=== PATIENT | male | born 1970 | race Caucasian/White ===

== ENCOUNTER 2021-09-18 05:39 | Observation (INO) ==
[2021-09-18] MEDS ORDERED: CLINDAMYCIN INJ 600 MG/50 ML PREMIX IV ONE (06:00)
[2021-09-18] MEDS ORDERED: FAMOTIDINE 20 MG TABLET PO ONE (06:29)
[2021-09-18] MEDS ORDERED: GABAPENTIN 400 MG CAPSULE PO ONE (06:29)
[2021-09-18] MEDS ORDERED: ACETAMINOPHEN 500 MG TABLET PO ONE (06:29)
[2021-09-18] MEDS ORDERED: DIAZEPAM 5 MG TABLET PO ONE (06:29)
[2021-09-18] MEDS ORDERED: LACTATED RINGERS 1,000 ML IV SCH (06:30)
[2021-09-18] MEDS ORDERED: LIDOCAINE 2% 5 ML VIAL ONE (06:31)
[2021-09-18] MEDS ORDERED: propofoL 200 MG/20 ML VIAL IV ONE (06:31)
[2021-09-18] MEDS ORDERED: MIDAZOLAM 2 MG/2 ML VIAL ONE (06:31)
[2021-09-18] MEDS ORDERED: fentaNYL 100 MCG/2 ML VIAL ONE ×2 (06:31→08:33)
[2021-09-18] MEDS ORDERED: SUCCINYLCHOLINE 200 MG/10 ML VIAL ONE (06:34)
[2021-09-18] MEDS ORDERED: ROCURONIUM 50 MG/5 ML VIAL IV ONE (06:34)
[2021-09-18] MEDS ORDERED: LIDOCAINE 1%/EPI INJ 20 ML VIAL ONE (06:50)
[2021-09-18] MEDS ORDERED: BUPIVACAINE MPF 0.25% 30 ML VIAL ONE (06:50)
[2021-09-18] MEDS ORDERED: TISSUE ADHESIVE 1 EACH APPLICATOR TOP ONE ×2 (06:50→08:51)
[2021-09-18] MEDS ORDERED: PHENYLEPHRINE 10 MG/1 ML VIAL IV ONE (07:14)
[2021-09-18] MEDS ORDERED: ePHEDrine 50 MG/ML VIAL ONE (07:23)
[2021-09-18] MEDS ORDERED: SEVOFLURANE 1 UNIT/15 MINUTE INH ONE (07:59)
[2021-09-18] MEDS ORDERED: LACTATED RINGERS 1,000 ML IV ONE (07:59)
[2021-09-18] MEDS ORDERED: SODIUM CHLORIDE 0.9% 100 ML IV ONE (07:59)
[2021-09-18] MEDS ORDERED: DEXAMETHASONE 4 MG/1 ML VIAL ONE (08:00)
[2021-09-18] MEDS ORDERED: ONDANSETRON 4 MG/2 ML VIAL ONE (08:00)
[2021-09-18] MEDS ORDERED: SUGAMMADEX 200 MG/2 ML VIAL IV ONE (08:16)
[2021-09-18] MEDS ORDERED: ONDANSETRON 4 MG/2 ML VIAL IV PRN (09:11)
[2021-09-18] MEDS ORDERED: MORPHINE 2 MG/1 ML SYRINGE IV PRN (09:11)
[2021-09-18 10:59] LABS: Hematocrit 43.9 VOL% (42.0-52.0); Hemoglobin 14.8 GM/DL (14.0-18.0)
[2021-09-18 17:58] LABS: Hematocrit 45.6 VOL% (42.0-52.0); Hemoglobin 15.3 GM/DL (14.0-18.0)
[2021-09-18] MEDS: busPIRone 5 MG TABLET PO SCH (21:27)
[2021-09-18] MEDS ORDERED: MORPHINE 4 MG/1 ML VIAL IV PRN (23:00)
[2021-09-19 01:07] LABS: Hematocrit 41.9 VOL% (42.0-52.0)
[2021-09-19] MEDS ORDERED: LEVOTHYROXINE 150 MCG TABLET PO SCH (06:30)
[2021-09-19 07:45] VITALS: BP 132/89
[2021-09-19] MEDS: busPIRone 5 MG TABLET PO SCH (08:44)
[2021-09-19] MEDS ORDERED: amLODIPine 5 MG TABLET PO SCH (09:00)
[2021-09-19] MEDS ORDERED: PIOGLITAZONE 15 MG TABLET PO SCH (09:00)
[2021-09-19] MEDS ORDERED: OLMESARTAN 20 MG TABLET PO SCH (09:00)
[2021-09-19] MEDS ORDERED: PANTOPRAZOLE 40 MG TABLET PO SCH (09:00)
== END 2021-09-19 10:55 | disposition home or self-care (01) ==
LOC: N.3E 05:39 → N.SDSINP 05:39 → N.OR 05:39 → N.SDSINP 05:44 → N.3E 09:43 → N.OR 09-19 10:55 → N.3E 09-19 11:44
PROVIDERS: ADMIT Surgery; ATTEND Surgery
PROC: LAPCHOL (2021-09-18 07:01)